=== PATIENT | male | born 1980 | race Caucasian/White ===

== ENCOUNTER 2020-04-06 16:54 | Outpatient (REF) | payer OTHER, SELFPAY | END 2020-04-06 16:55 | disposition home or self-care (01) | LOC: HO.LAB 16:54 | PROVIDERS: Visit Provider Internal Medicine | DX: Z20.828 Contact with and (suspected) exposure to other viral communicable diseases (principal) | CPT/HCPCS: 36415; C9803; U0003 ==

== ENCOUNTER 2021-05-29 19:21 | Emergency (ER) | payer SELFPAY ==
--- NOTE | ~2021-05-29 | CT_ITS ---
EXAMINATION: CT LUMBAR SPINE WITHOUT CONTRAST CLINICAL INFORMATION: Pain in lower back COMPARISON: None TECHNIQUE: No intravenous contrast was utilized. Multidetector helical imaging was performed through the lumbar spine. Coronal and sagittal reformatted images were created. This CT examination was performed using dose optimization techniques as appropriate, variously including the following: *Automated exposure control *Adjustment of mA and/or kV according to patient size (this includes techniques or standardized protocols for targeted exams where dose is matched to indication/reason for exam; i.e. extremities or head) *Use of iterative reconstruction technique DLP; 1474 mGy-cm FINDINGS: There is anatomic alignment of the lumbar vertebral bodies and posterior elements. Vertebral body heights are maintained. Endplate osteophytes are present most prominently at L3 and L4. Intervertebral disc spaces are relatively well-preserved. No acute fracture is seen. No significant stenoses identified. Sacroiliac joints are intact. CT/CT lumbar spine wo con IMPRESSION: No acute findings identified in the lumbar spine. No significant stenoses identified, though evaluation for this would be better performed with MRI if clinically warranted.
--- NOTE | ~2021-05-29 | CT_ITS ---
EXAMINATION: CT OF THE HEAD AND CERVICAL SPINE WITHOUT CONTRAST CLINICAL INFORMATION: Headache. Neck pain. Status post fall COMPARISON: None. TECHNIQUE: Contiguous axial imaging was performed from the vertex to the thoracic inlet, through the head and cervical spine, without intravenous administration of contrast. Coronal and sagittal reformatted images through the cervical spine were obtained on the technologists workstation. This CT examination was performed using dose optimization techniques as appropriate, variously including the following: *Automated exposure control *Adjustment of mA and/or kV according to patient size (this includes techniques or standardized protocols for targeted exams where dose is matched to indication/reason for exam; i.e. extremities or head) *Use of iterative reconstruction technique FINDINGS: Head: No acute intracranial hemorrhage. No extra-axial fluid collection. Smith-white matter differentiation is preserved without evidence of acute large vessel territory ischemia. Symmetric, concordant ventricles and sulci; no hydrocephalus. No mass effect or midline shift. There is no abnormal attenuation within the brain parenchyma. The osseous structures and soft tissues are normal. No acute sinusitis. Cervical spine: Normal pre-vertebral soft tissues. No fracture seen. Normal alignment. Disk heights are maintained. Thyroid homogeneous with no nodules seen. Paraseptal emphysema at the lung apices. No cervical lymphadenopathy, mass, or fluid collection. CT/CT cervical spine wo con IMPRESSION: No acute intracranial pathology. No acute osseous abnormality of the cervical spine.
--- NOTE | ~2021-05-29 | CT_ITS ---
EXAMINATION: CT OF THE HEAD AND CERVICAL SPINE WITHOUT CONTRAST CLINICAL INFORMATION: Headache. Neck pain. Status post fall COMPARISON: None. TECHNIQUE: Contiguous axial imaging was performed from the vertex to the thoracic inlet, through the head and cervical spine, without intravenous administration of contrast. Coronal and sagittal reformatted images through the cervical spine were obtained on the technologists workstation. This CT examination was performed using dose optimization techniques as appropriate, variously including the following: *Automated exposure control *Adjustment of mA and/or kV according to patient size (this includes techniques or standardized protocols for targeted exams where dose is matched to indication/reason for exam; i.e. extremities or head) *Use of iterative reconstruction technique FINDINGS: Head: No acute intracranial hemorrhage. No extra-axial fluid collection. Smith-white matter differentiation is preserved without evidence of acute large vessel territory ischemia. Symmetric, concordant ventricles and sulci; no hydrocephalus. No mass effect or midline shift. There is no abnormal attenuation within the brain parenchyma. The osseous structures and soft tissues are normal. No acute sinusitis. Cervical spine: Normal pre-vertebral soft tissues. No fracture seen. Normal alignment. Disk heights are maintained. Thyroid homogeneous with no nodules seen. Paraseptal emphysema at the lung apices. No cervical lymphadenopathy, mass, or fluid collection. CT/CT head/brain wo con IMPRESSION: No acute intracranial pathology. No acute osseous abnormality of the cervical spine.
[2021-05-29 19:23] VITALS: BP 142/82; PULSE 92; RESP 18; TEMP 36.6; O2SAT 99; BMI 25.0
--- NOTE | 2021-05-29 22:24 | ED.GENADULT ---
HPI - General Adult General Chief complaint: General Medical Stated complaint: suture removal, stiff neck Time Seen by Provider: 05/29/21 22:24 Source: patient Mode of arrival: ambulatory Limitations: no limitations History of Present Illness HPI narrative: This is a 40-year-old male presenting to the emergency department for suture removal, staple removal and severe neck pain/stiff neck and lower back pain since 05/19/2021. Patient tells me he slipped down the stairs, hitting the posterior aspect of his head in the front of his head on that day, he was seen at [facility] where he had a CT of the head he tells me he did not get a CT of the neck. At this time he reports severe neck pain that is in the middle of his neck. He also tells me he feels tingling intermittently to bilateral upper extremities. He reports 10/10 pain to his neck telling me he is having hard time moving it. Also tells me he has been having intermittent headaches, no vision changes or dizziness. He also tells me he is having lower back pain, worse with movement better at rest. He denies any urinary symptoms, denies urine/bowel incontinence/retention, saddle paresthesias, nausea, vomiting, weakness, abdominal pain, vision changes, dizziness, new trauma. He had 3 sutures placed to the left side of his forehead and 8 sue to the occipital aspect of the head. Onset (ago): day(s) (10) Location: head Radiation: non-radiation Severity: severe Quality: constant and other (stiff) Pain Consistency: constant Relieving factors: immobilization Exacerbating factors: movement Associated symptoms: denies other symptoms Treatments prior to arrival: none Related Data Previous Rx's Medication Instructions Recorded cyclobenzaprine 10 mg tablet 10 mg PO BEDTIME PRN #7 tab 05/29/21 lidocaine 5 % topical patch 1 patch TOPICAL DAILY PRN #15 ea 05/29/21 Allergies Allergy/AdvReac Type Severity Reaction Status Date / Time No Known Allergies Allergy Verified 05/29/21 19:23 Review of Systems Review of Systems: Constitutional : No Weight loss, No Fever, No Chills, No Fatigue, No Malaise ENT/Mouth : No sore throat, No Rhinorrhea Eyes: No Eye Pain, No Swelling, No Redness Cardiovascular : No Chest Pain, No SOB, No Dyspnea on Exertion, No Orthopnea, No Edema, No Palpitations Respiratory : No Cough, No Sputum, No Wheezing Gastrointestinal : No Nausea, No Vomiting, No Diarrhea, No Constipation, No abdominal Pain, No Hematochezia, No Melena Genitourinary : No Dysuria, No Urinary Frequency, No Hematuria, Musculoskeletal : + joint pain, No Myalgias, No Joint Swelling Skin : No Skin Lesions, No rash Neuro : No Weakness, No Numbness, No Dizziness, + Headache Psych : No Anxiety/Panic, No Depression ipsia All other systems reviewed and are negative Yes all other systems are reviewed and are negative [facility] Social History Social History Advance Directives: No Advance Directives Information Provided: No Physical Exam ED Vital Signs: Vital Signs - 24 hr 05/29/21 19:23 Temperature 97.9 F Pulse Rate 92 Respiratory Rate 18 Blood Pressure 142/82 H Pulse Oximetry 99 BMI result Body Mass Index 25.0 VSS Appearance: Alert.? Oriented X3.? No acute distress.? Head: Normocephalic, atraumatic, no step-offs or deformities Eyes: Pupils equal, round and reactive to light.? ENT: Pharynx normal.? Neck: Normal inspection.? Neck supple.? CVS: Normal heart rate and rhythm.? Pulses normal.? Respiratory: No respiratory distress.? Breath sounds normal.? Abdomen: Soft and nontender.? Skin: Skin warm and dry.? Normal skin color.? Normal skin turgor.? Extremities: No lower extremity edema.? No calf ttp. 5/5 strength to bilateral upper and lower extremities Back: No midline tenderness, no C-spine tenderness, full range of motion, no CVA tenderness bilaterally + paraspinous tenderness in the cervical and lumbar region. No midline tenderness. No saddle paresthesias. 2+ patellar reflexes equal in bilateral. + pain with flexion, extension, and rotation of neck Neuro: Oriented X 3.? No motor deficit.? No sensory deficit. CN 2-12 intact no saddle paresthesias Course Reevaluation(s) Reevaluation #1: Three sutures were successfully removed from the left side of patient's forehead without issues. In 8 sue were removed from the occipital aspect of head. CT pending at this time. Time: 22:38 Reevaluation #2: CT of head, neck and lumbar spine within normal limits. Patient is not experiencing any red flag symptoms such as urinary incontinence, bowel incontinence, urinary retention, bowel retention, saddle paresthesias, numbness, tingling to lower extremities, saddle paresthesias, fevers, chills. Patient has no history of IV drug use. Unlikely cauda equina or epidural abscess. At this time will discharge patient home with lidocaine patches in muscle relaxers. Advised him to follow-up with his PCP this week. And return with new or worsening symptoms as outlined in his discharge. Time: 23:36 Medical Decision Making [facility] Narrative Medical decision making narrative: [birth year]34 41 yo male presents for suture/staple removal and severe neck pain Physical examination significant paraspinous tenderness in the cervical, and lumbar region. There is also pain with range of motion of neck with flexion, extension and rotation. 2+ patellar reflexes equal bilateral. No saddle paresthesias. S1-S2 appreciated free of murmurs. Regular rate and rhythm. Abdomen soft nontender nondistended. Neuro nonfocal. Pupils equal round and reactive to light. Extraocular movements intact. Plan at this time is to obtain a head CT, cervical spine CT and CT of the lumbar spine. Medical Records Medical records reviewed: Yes I reviewed the patient's medical records. Lab Data Lab results reviewed: Yes I reviewed the patient's lab results. Critical Care Time Critical Care Time Critical Care Time: No Discharge Plan Discharge Clinical Impression: Encounter for removal of sutures, Cervical strain, Headache Patient Disposition: Home, Self-Care Instructions: Cervical Strain (ED), Acute Headache (ED), Acute Headache (DC), Cervical Sprain (ED) Additional Instructions: Take your medications as prescribed. If you were prescribed antibiotics today, it is important that you take your medication to their entirety, do not skip any doses, do not finish them early. Follow-up with your primary care provider this week. Return to the emergency department with new or worsening symptoms. Such as vision changes, loss of consciousness, dizziness, headache, nausea, vomiting, neck pain, fevers, chills, numbness, tingling, inability to control urine or stool. Take ibuprofen every 6 hours, Tylenol every 4 as needed for pain. In case of emergency call 911 Prescriptions: New cyclobenzaprine 10 mg tablet 10 mg PO BEDTIME PRN (Reason: muscle spasm) Qty: 7 0RF lidocaine 5 % adhesive patch,medicated 1 patch topical DAILY PRN (Reason: pain) Qty: 15 0RF Rx Instructions: leave on most painful area for up to 12 hrs Referrals: Physician,None [Primary Care Provider] - 2 days Stand Alone Forms: Work/School Release
[2021-05-29 23:48] VITALS: RESP 20
== END 2021-05-29 23:50 | disposition home or self-care (01) ==
PROVIDERS: Emergency Provider Internal Medicine
DX: S16.1XXA Strain of muscle, fascia and tendon at neck level, initial encounter (principal); X58.XXXA Exposure to other specified factors, initial encounter; M54.50 Low back pain, unspecified; R51.9 Headache, unspecified; Y93.9 Activity, unspecified; Y92.9 Unspecified place or not applicable; Y99.9 Unspecified external cause status; Z48.02 Encounter for removal of sutures; S01.81XD Laceration without foreign body of other part of head, subsequent encounter; S01.01XD Laceration without foreign body of scalp, subsequent encounter; X58.XXXD Exposure to other specified factors, subsequent encounter
CPT/HCPCS: 70450; 72125; 72131; 99284